=== PATIENT | male | born 1965 | race Native Hawaiian/Other Pacific Islander ===

== ENCOUNTER 2018-01-19 11:30 | Outpatient (CLI) | payer OTHER | END 2018-01-19 11:33 | disposition short-term general hospital (02) | LOC: AMB 11:30 | DX: R07.89 Other chest pain (principal) | CPT/HCPCS: A0425; A0427 ==

== ENCOUNTER 2018-01-19 11:35 | Emergency (ER) | payer OTHER ==
[~2018-01-19] VITALS: Ht 182.9 cm; Wt 90.7 kg
[2018-01-19 12:13] LABS: PLATELET COUNT 176 K/uL (142-355)
[2018-01-19 12:17] LABS: POTASSIUM 4.1 mmol/L (3.6-5.2); SODIUM 136 mmol/L (136-145)
[2018-01-19 16:34] VITALS: BP 135/102; TEMP 97.9
== END 2018-01-19 16:45 ==
LOC: ED 11:35
PROVIDERS: Family Medicine
DX: R07.89 Other chest pain (principal); I10 Essential (primary) hypertension; R51 Headache
CPT/HCPCS: 36415; 80053; 81000; 82550; 84484; 85027; 93005; 96374; 99284; J0360; J1885